=== PATIENT | female | born 1990 | race Caucasian/White ===

== ENCOUNTER → 2021-07-12 00:57 | Outpatient (CLI) | payer BC, SELFPAY ==
[2021-07-12 18:55] LABS: SARS-CoV-2 RNA PCR Negative
== END ==
PROVIDERS: Visit Provider Internal Medicine Gastroenterology
DX: Z01.812 Encounter for preprocedural laboratory examination (principal); Z20.822 Contact with and (suspected) exposure to COVID-19
CPT/HCPCS: C9803; U0003; U0005

== ENCOUNTER 2021-07-15 00:48 | Day surgery (SDC) | payer BC, SELFPAY ==
[2021-06-30 12:44] VITALS: BMI 25.0
--- NOTE | 2021-07-15 08:23 | P.PNAN_ITS ---
Anes - Initial Pre Proc Eval Procedure: Operation Date: 07/15/21 14:00 Proposed Procedures p Esophagogastroduodenoscopy & Colonoscopy - Antwon Deras MD Date/Time: 07/15/21 08:23 Surgeon: Antwon Deras MD Pre Op Diagnosis: nausea, dysphagia, colitis Patient Data Age: 30 Gender: F Height: 1.68 m Weight: 70.5 kg Allergies Allergy/AdvReac Type Severity Reaction Status Date / Time No Known Allergies Allergy Verified 07/15/21 12:47 Home Medications Medication Instructions Recorded Confirmed Type calcium carbonate 600 mg calcium 600 mg PO DAILY 06/23/21 07/15/21 History (1,500 mg) tablet cholecalciferol (vitamin D3) 50 50 mcg PO DAILY 06/23/21 07/15/21 History mcg (2,000 unit) capsule famotidine 20 mg tablet 20 mg PO DAILY 06/23/21 07/15/21 History hydroxyzine HCl 50 mg tablet 50 mg PO BID 06/23/21 07/15/21 History liehajqljjjs-[id number]-okbi-minerals 1 tablet PO DAILY 06/23/21 07/15/21 History Patient hx anesthesia problems: none Family hx anesthesia problems: none Results Review: All pre-operative results and documents have been reviewed as part of the pre-operative evaluation. [facility] Past Medical History Medical History (Updated 07/15/21 @ 08:24 by Cole Shelton DO) Colitis IBS (irritable bowel syndrome) Surgical History Surgical History (Updated 06/23/21 @ 13:23 by Jonnie Ramirez MA) H/O dilation and curettage H/O tubal ligation Family History Family History (Updated 06/23/21 @ 13:25 by Jonnie Ramirez MA) Father Asthma Liver cancer Hypertension Cerebrovascular accident Mother Bone cancer Diabetes mellitus Hypertension Sibling Hypertension Social History Social History (Updated 06/23/21 @ 13:27 by Jonnie Ramirez MA) Smoking packs per day: 1 Smoking cigarettes per day: 20.0 Years smoked: 13 Smoking pack-years: 13.00 Smoking status: Former smoker Tobacco type: cigarettes Second hand tobacco smoke exposure: No Alcohol intake: never Substance use: never Substance use type: does not use Living arrangements: with family Additional occupation/education comments: [employer] Gender identity (if verbalized by the patient): Female Spiritual care concerns: No Agree to blood products: Yes Anes - Eval Final PreProcedure Day of Procedure 07/15/21 08:23 Patient weight: overweight Heart: regular rate and rhythm Lungs: clear to auscultation and normal air movement Airway: Mallampati scale class II Neurological: alert and oriented Last oral intake: >/= 8 hours ASA classification: II Emergent: no Anesthetic plan: proceed Anesthesia type and monitoring: general GIVS and standard monitoring Results Review: All pre-operative results and documents have been reviewed as part of the pre-operative evaluation. Informed Consent: The patient's anesthetic plan and its attendant risks and benefits were discussed with the patient/family/POA. Questions were solicited and answers provided to the satisfaction of the patient/family/POA.
[2021-07-15 12:49] VITALS: BP 126/73; PULSE 82; RESP 16; TEMP 36.3; O2SAT 100; BMI 25.2
[2021-07-15] MEDS: LACTATED RINGERS 1,000 ML 150 ML IV CONT (13:01)
--- NOTE | 2021-07-15 13:31 | WPDGICN ---
Assessment and Plan Assessment and plan (1) IBS (irritable bowel syndrome): Code(s): K58.9 - Irritable bowel syndrome without diarrhea Status: Acute Assessment and Plan: Patient has a long history of irregular bowel movements there is suspicious for irritable bowel syndrome. Fiber in her diet with MiraLax on a routine basis is suggested initially. Colonoscopy to evaluate these symptoms will be performed (2) Colitis: Code(s): K52.9 - Noninfective gastroenteritis and colitis, unspecified Status: Acute Assessment and Plan: patient had a CT scan in [place] during summer suspicious for colitis plan is for a colonoscopy to exclude inflammatory bowel disease. Further recommendations will be given after endoscopy. (3) Dysphagia: Code(s): R13.10 - Dysphagia, unspecified Status: Acute Assessment and Plan: Patient has vague complaints of dysphagia with food in her mouth unable to initiate swallowing. She apparently saw ENT with no specific findings. Plan is for EGD to exclude organic disease of the upper GI tract. GI Consult Note Consult date/time: 07/15/21 13:31 HPI: Cara Souza is a 30 year old female Presents for GI endoscopy. She complains of difficulty swallowing for several months. Apparently saw ENT with normal findings in she was referred for GI workup. Patient states when she eats sometimes the food will stay in her mouth and unable to progress towards the esophagus. She denies any difficulty with regurgitation. She has no heartburn. She is referred for an EGD to exclude esophageal difficulties. Patient has a long history of irregular bowel movements with diarrhea alternating with constipation. She states she has gone up to 45 days without a bowel movement. In the summer while in [facility] went to the emergency room a CT scan suggested colitis . These findings are not available for review. Patient was left with a feeling this may represent inflammatory bowel disease. She has intermittently had bright red blood per rectum with wiping says sometimes this will last for so 1-2 days. It occurs at intervals of up to 6 months or longer. She is referred for a colonoscopy today to exclude any consideration of inflammatory bowel disease. In the past was told she may have irritable bowel syndrome. She takes MiraLax intermittently and sometimes will require magnesium citrate to have a bowel movement. Review of Systems Review of Systems: All systems reviewed & are unremarkable except as noted in HPI and below PMFSH Past Medical History Medical History (Updated 07/15/21 @ 13:34 by Antwon Deras MD) Colitis IBS (irritable bowel syndrome) Surgical History Surgical History (Updated 06/23/21 @ 13:23 by Jonnie Ramirez MA) H/O dilation and curettage H/O tubal ligation Family History Family History (Updated 06/23/21 @ 13:25 by Jonnie Ramirez MA) Father Asthma Liver cancer Hypertension Cerebrovascular accident Mother Bone cancer Diabetes mellitus Hypertension Sibling Hypertension Social History Social History (Updated 06/23/21 @ 13:27 by Jonnie Ramirez MA) Smoking packs per day: 1 Smoking cigarettes per day: 20.0 Years smoked: 13 Smoking pack-years: 13.00 Smoking status: Former smoker Tobacco type: cigarettes Second hand tobacco smoke exposure: No Alcohol intake: never Substance use: never Substance use type: does not use Living arrangements: with family Additional occupation/education comments: [employer] Gender identity (if verbalized by the patient): Female Spiritual care concerns: No Agree to blood products: Yes Meds Home Medications and Allergies Home Medications Medication Instructions Recorded Confirmed Type calcium carbonate 600 mg calcium 600 mg PO DAILY 06/23/21 07/15/21 History (1,500 mg) tablet cholecalciferol (vitamin D3) 50 50 mcg PO DAILY 06/23/21
--- NOTE | 2021-07-15 13:47 | SUR.OPER ---
EGD END AT 1343. COLONOSCOPY BEGIN AT 1348
[2021-07-15 13:59] VITALS: BP 98/58; PULSE 71; RESP 21; O2SAT 99
[2021-07-15 14:09] VITALS: BP 102/66; PULSE 60; RESP 17; O2SAT 100
[2021-07-15 14:19] VITALS: BP 104/67; PULSE 63; RESP 20; O2SAT 100
== END 2021-07-15 14:42 | disposition home or self-care (01) ==
PROVIDERS: Visit Provider Internal Medicine Gastroenterology
PROC: 0DJ08ZZ Inspection of Upper Intestinal Tract, Via Natural or Artificial Opening Endoscopic (ICD-10-PCS; CPT 43235; principal; 2021-07-15 14:00)
DX: R13.10 Dysphagia, unspecified (principal); K64.8 Other hemorrhoids; K58.9 Irritable bowel syndrome, unspecified; Z87.891 Personal history of nicotine dependence
CPT/HCPCS: 43239; 45378; 87081; J2704; J7120